=== PATIENT | female | born 1985 | race African-American/Black ===

== ENCOUNTER 2020-08-15 20:22 | Emergency (ER) | payer OTHER ==
[~2020-08-15] VITALS: Ht 160 cm; Wt 57.0 kg
--- NOTE | 2020-08-15 22:15 | NUR ---
PT TO ROOM, C/O PAIN TO ABDOMEN. PT PROVIDED URINE FOR SAMPLE AND SENT TO LAB. PIV TO RIGHT AC STARTED X1 ATTEMPT 18G. FLUSHED EASILY, AND NON REDNESS OR SWELLING. BLOOD DRAWN FOR LABS, AND SENT TO LAB.
[2020-08-15] MEDS ORDERED: LACTATED RINGERS 1,000 ML IV ONE (22:30)
[2020-08-15] MEDS ORDERED: SODIUM CHLORIDE FLUSH 10ML SYR IVF ONE (22:30)
[2020-08-15] MEDS ORDERED: ONDANSETRON 2MG/ML, 2ML IVPush ONE (22:30)
[2020-08-15] MEDS ORDERED: PLEASE ENTER ALLERGIES MC SCH (22:30)
[2020-08-15] MEDS ORDERED: MAALOX/HYOSCYAMINE/LIDOCAINE 45 ML BTL PO ONE (22:30)
[2020-08-15] MEDS ORDERED: FAMOTIDINE 20 MG/2 ML IVPush ONE (22:30)
[2020-08-15 22:35] LABS: BASOPHILS % (AUTO) 0 % (0-1); EOSINOPHILS % (AUTO) 0 % (1-7); LYMPHOCYTES % (AUTO) 5 % (22-44); MEAN CORPUSCULAR HEMOGLOBIN 30.1 pg (27.0-34.8); MEAN CORPUSCULAR HGB CONC 33.3 g/dL (32.4-35.8); MEAN PLATELET VOLUME 11.1 fL (7.4-10.4); MONOCYTES % (AUTO) 3 % (2-9); NEUTROPHILS % (AUTO) 92 % (42-75); PLATELET COUNT 228 x10^3/uL (130-400); RED CELL DISTRIBUTION WIDTH 13.3 % (9.6-15.2)
[2020-08-15] MEDS ORDERED: FAMOTIDINE 20 MG/2 ML ONE (22:45)
[2020-08-15] MEDS ORDERED: ONDANSETRON 2MG/ML, 2ML ONE (22:45)
[2020-08-15] MEDS ORDERED: MAALOX/HYOSCYAMINE/LIDOCAINE 45 ML BTL ONE (22:45)
[2020-08-15 22:48] LABS: ALANINE AMINOTRANSFERASE 35 U/L (12-78); ALBUMIN 3.8 g/dL (3.4-5.0); ANION GAP 8 mmol/L (5-15); CALCIUM 9.7 mg/dL (8.5-10.1); CHLORIDE 108 mmol/L (98-107); CREATININE 1.02 mg/dL (0.55-1.02)
[2020-08-15 22:52] LABS: ALKALINE PHOSPHATASE 57 U/L (45-117); BILIRUBIN,TOTAL 0.6 mg/dL (0.2-1.0); TOTAL PROTEIN 8.1 g/dL (6.4-8.2)
--- NOTE | 2020-08-15 23:14 | NUR ---
MEDS GIVEN, IV AND PO, AND PT TOLERATED WELL. WARM BLANKETS PROVIDED TO PT AFTER PT SAID SHE WAS COLD. IV SITE INTACT, AND LR FLOWING
--- NOTE | 2020-08-15 23:43 | NUR ---
TO EVAL PT, AND ORDERED A CT SCAN. PT WHEELED TO CT SCAN BY HO[facility].
[2020-08-15] MEDS ORDERED: OMNIPAQUE 350 MG/ML, 100ML BOTTLE ONE (23:45)
--- NOTE | 2020-08-15 23:54 | NUR ---
PT BACK FROM CT SCAN. IN NO ACUTE DISTRESS. AND IV FLUIDS COMPLETED ADMINISTRATION.
--- NOTE | 2020-08-16 00:50 | NUR ---
PT UP TO BATHROOM, NO DISTRESS AND STEADY ON FEET.
[2020-08-16 01:11] VITALS: BP 122/68
[2020-08-16] MEDS ORDERED: CEFDINIR 300 MG CAPSULE PO/NG ONE (01:30)
[2020-08-16] MEDS ORDERED: metroNIDAZOLE 500 MG TABLET PO ONE (01:30)
[2020-08-16] MEDS ORDERED: metroNIDAZOLE 500 MG TABLET ONE (01:52)
[2020-08-16] MEDS ORDERED: CEFDINIR 300 MG CAPSULE ONE (01:53)
--- NOTE | 2020-08-16 02:08 | NUR ---
F/U AND D/C INSTRUCTIONS GIVEN TO PT WITH PRESCRIPTION AND PT TOOK INITIAL PO ANTIBIOTICS PRIOR TO D/C. PIV D/C'D AND CATH INTACT.
== END 2020-08-16 02:11 | disposition home or self-care (01) ==
LOC: ED 21:57
DX: K52.9 Noninfective gastroenteritis and colitis, unspecified (principal); K42.9 Umbilical hernia without obstruction or gangrene; R10.13 Epigastric pain; R11.2 Nausea with vomiting, unspecified
CPT/HCPCS: 36415; 74177; 80053; 83690; 84703; 85025; 96361; 96374; 96375; 99285; J2405; J7120; Q9967